=== PATIENT | male | born 1965 | race Caucasian/White ===

== ENCOUNTER 2016-08-01 08:56 | Emergency (ER) | payer SELFPAY ==
[~2016-08-01] VITALS: Ht 175.3 cm; Wt 75.8 kg
[2016-08-01 09:36] LABS: EOSINOPHIL (%) 1.8 % (0-5); EOSINOPHIL COUNT 0.2 K/uL (0-0.3); HEMATOCRIT 43.2 % (38.0-50.0); IMMATURE GRANULOCYTE (%) 0.2 % (0.0-0.7); INSTRUMENT ABS NEUTROPHIL CT 5.9 K/uL; LYMPHOCYTE COUNT 1.6 K/uL (1.0-2.8); MCHC 33.8 G/DL (30.0-36.0); MCV 88.9 FL (86-99); MEAN PLAT.VOLUME 9.1 uM^3 (9.0-12.4); MONOCYTE (%) 6.6 % (3-12); MONOCYTE COUNT 0.5 K/uL (0-0.8); NEUTROPHIL (%) 72.2 % (45-76); NEUTROPHIL COUNT 5.9 K/uL (1.8-6.4); PLATELET COUNT 352 K/uL (156-360); RBC DIS.WIDTH-CV 13.1 % (11.8-14.6); RBC DIS.WIDTH-SD 42.8 % (39-53); RED BLOOD COUNT 4.86 M/uL (4.00-5.50); WHITE BLOOD COUNT 8.2 K/uL (4.1-10.2)
[2016-08-01 09:47] LABS: CHLORIDE 103 mEq/L (99-109); POTASSIUM 4.7 mEq/L (3.7-5.4); SODIUM 141 mEq/L (136-147)
[2016-08-01 09:49] LABS: GLUCOSE 100 mg/dL (70-99)
[2016-08-01 09:50] LABS: ANION GAP 12 MEQ/L (2-14)
[2016-08-01 09:51] LABS: TOTAL BILIRUBIN 0.6 mg/dL (0.0-1.0)
[2016-08-01 09:52] LABS: ALKALINE PHOSPHATASE 57 IU/L (3-129)
[2016-08-01 09:53] LABS: GFR ESTIMATE (CALCULATED) > 59 mL/min/
[2016-08-01 09:54] LABS: UREA NITROGEN (BUN) 14 mg/dL (9-23)
[2016-08-01 09:56] LABS: LIPASE 17 U/L (1.0-51.0)
[2016-08-01 10:31] LABS: BASE EXCESS 3.1 mEq/L (-3 to +3); CARBOXY HGB 1.3 % (0-5); COMMENTS - BLOOD GASES A+C+; DEVICE RA; FI02 21 %; METHEMOGLOBIN 1.4 % (0-1.5); PCO2 38 mm Hg (35-45); PO2 67 mm Hg (80-100); SITE LRA; TOTAL RESP RATE 18 resp/min; pH 7.46 (7.35-7.45)
[2016-08-01 11:19] LABS: D-DIMER ELISA 0.18 mg/L FEU (< 0.57)
[2016-08-01 11:34] LABS: TROP-I INTERPRETATION NEGATIVE; TROPONIN-I < 0.01 ng/mL (0.0-0.30)
[2016-08-01 12:30] VITALS: BP 115/76
== END 2016-08-01 12:31 | disposition left against medical advice (07) ==
LOC: EME 08:56 → EDBD 08:56 → EME 12:31
PROVIDERS: Emergency Medicine
DX: R10.10 Upper abdominal pain, unspecified (principal)
CPT/HCPCS: 36600; 71010; 80053; 82803; 83690; 84484; 85025; 85379; 93005; 99281; 99285; J1885; J2405; J3010